=== PATIENT | female | born 1990 | race Caucasian/White ===

== ENCOUNTER → 2025-02-19 | Outpatient (CLI) | payer BC, MEDICAID, SELFPAY ==
--- NOTE | 2025-02-19 08:56 | XR_ITS ---
Examination: Breast ultrasound, unilateral, right complete Date and time of exam: February 19, 2025 0917 hours INDICATIONS: Right nipple itchiness beginning 3 months ago Technique: Real-time arellano scale ultrasonographic imaging performed right breast including all 4 quadrants as well as nipple retroareolar and axillary region. Findings: 6:00 cyst 9 x 6 mm No solid nodules Dilated ducts in the retroareolar region right breast IMPRESSION: BI-RADS Category 2: Benign findings
== END | disposition home or self-care (01) ==
PROVIDERS: PCP Nurse Practitioner Family; Referring Provider Nurse Practitioner Family; Visit Provider Nurse Practitioner Family
DX: N64.59 Other signs and symptoms in breast (principal)
CPT/HCPCS: 76641